=== PATIENT | female | born 1990 ===

== ENCOUNTER 2025-05-23 14:04 | Inpatient (IN) ==
[2025-05-23] MEDS: OXYTOCIN 30 UNITS/500ML NSS IV ONE (14:10)
[2025-05-23] MEDS ORDERED: BENZOCAINE 20% SPRY 85 APPLN/85 GM CAN EXT PRN (14:22)
[2025-05-23] MEDS ORDERED: HYDROCORTISONE ACETATE 25 MG SUPP PR PRN (14:22)
--- NOTE | 2025-05-23 14:28 | Delivery Summary ---
Vaginal Delivery Summary Date of Service May 23, 2025 Vaginal Delivery Summary DIAGNOSES: 1. Grande intrauterine at apparent term gestation. 2. Precipitous labor, arriving at L&D in second stage actively pushing 3. Non [place]-speaking patient 4. care with different physician group, thus no history available to me while providing delivery services PROCEDURE: Spontaneous vaginal delivery without perineal laceration. SURGEON: Cindy Lloyd MD. SET UP INSPECTOR: None. QUANTITATIVE BLOOD LOSS: 105 mL. COMPLICATIONS: None. PLACENTA: Spontaneous and intact with a 3-vessel cord. DISPOSITION: Stable to labor and delivery. DESCRIPTION: The patient arrived completely dilated, 10/100/+3 with visible amnion between labia, containing clear fluid and vernix. I was near the room and gowned/gloved while the patient's usual physician was notified of her arrival. While screaming, the patient pushed involuntarily to deliver the head en caul. The anterior and posterior shoulders delivered without difficulty, and during delivery of the body the amnion finally ruptured. There was no nuchal cord. The was vigorous and moving all extremities, and making respiratory efforts. The cord was doubly clamped by the MD and then cut. The placenta delivered spontaneously and was noted to be intact and with a 3VC. The cervix, vagina and perineum were examined and were found to be without defect requiring repair. The fundus was firm and lochia minimal immediately after delivery. [facility] Vaginal Delivery Charge Vaginal Delivery Codes: 51306 vaginal delivery
[2025-05-23 15:03] LABS: Hematocrit (blood only) 38.9 % (37.0-47.0); Hemoglobin 12.3 g/dl (12.0-16.0); Mean Corpuscular Hemoglobin 25.4 pg (25.0-34.0); Mean Corpuscular Volume 80.4 fL (80.0-100.0); Platelet Count 254 K/uL (130-400); RDW Standard Deviation 38.1 fL (36.4-46.3); Red Blood Count 4.84 M/uL (4.20-5.40); White Blood Count 12.34 K/ul (4.8-10.8)
[2025-05-23] MEDS: IBUPROFEN 600 MG TAB PO ONE (15:37)
[2025-05-23] MEDS: OXYTOCIN 30 UNITS/NSS 30 UNITS/500 ML BAG IV PRN (15:37)
[2025-05-23] MEDS: CARBOPROST TROMETHAMINE 250 MCG/ML AMPUL ONE (17:27)
[2025-05-23] MEDS: LACTATED RINGER'S 1,000 ML IV SCH (17:27)
[2025-05-23] MEDS: METHYLERGONOVINE MALEATE 0.2 MG/ML AMP ONE (17:28)
[2025-05-23] MEDS: ACETAMINOPHEN 325 MG TAB PO PRN (17:49)
[2025-05-23] MEDS: CARBOPROST TROMETHAMINE 250 MCG/ML AMPUL IM ONE ×2 (19:10→22:03)
[2025-05-23] MEDS: METHYLERGONOVINE MALEATE 0.2 MG/ML AMP IM STA (19:10)
[2025-05-23] MEDS: DIPHTHER/TETAN/PERTUS Vaccine (Tdap, Adol/Adult) 0.5mL IM ONE (19:21)
[2025-05-23] MEDS: Patient's HEIGHT &/or WEIGHT Needed STA (19:25)
[2025-05-23 19:27] LABS: Hematocrit (blood only) 38.1 % (37.0-47.0); Hemoglobin 12.7 g/dl (12.0-16.0); Mean Corpuscular Hemoglobin 26.2 pg (25.0-34.0); Mean Corpuscular Volume 78.7 fL (80.0-100.0); Platelet Count 312 K/uL (130-400); RDW Standard Deviation 37.6 fL (36.4-46.3); Red Blood Count 4.84 M/uL (4.20-5.40); White Blood Count 15.14 K/ul (4.8-10.8)
[2025-05-23] MEDS: IBUPROFEN 600 MG TAB PO PRN (22:04)
[2025-05-23] MEDS: DOCUSATE SODIUM 100 MG CAP PO SCH (22:04)
[2025-05-24 06:01] VITALS: RESP 16
[2025-05-24 07:31] LABS: Hematocrit (blood only) 28.7 % (37.0-47.0); Hemoglobin 9.5 g/dl (12.0-16.0); Mean Corpuscular Hemoglobin 25.8 pg (25.0-34.0); Mean Corpuscular Volume 78.0 fL (80.0-100.0); Platelet Count 281 K/uL (130-400); RDW Standard Deviation 38.2 fL (36.4-46.3); Red Blood Count 3.68 M/uL (4.20-5.40); White Blood Count 10.83 K/ul (4.8-10.8)
[2025-05-24] MEDS: IRON SUCROSE 200 MG in SODIUM CHLORIDE 0.9% 100 ML IV ONE (09:06)
--- NOTE | 2025-05-24 09:19 | Obstetrical Progress Note ---
Date of Service May 24, 2025 Assessment & Plan Admission and Anticipated Discharge Date Admission Date: May 23, 2025 Subjective Patient is seen and examined. She feels well, no complaints. Ambulating without dizziness Voiding without difficulty Tolerating regular diet with out N&V Bleeding is minimal No fever/ chills/ CP/ SOB/ N&V/ Leg pain Breast feeding without problems Vital Signs Temp Pulse Resp BP Pulse Ox O2 Del Method 05/24/25 06:00 36.9 C 72 16 108/69 99 Room Air 05/24/25 01:50 37 C 71 18 106/70 98 Room Air 05/23/25 21:45 36.5 C 77 18 112/75 99 Room Air Lab Results 05/23/25 05/23/25 05/24/25 Range/Units 14:40 18:47 06:32 WBC 12.34 H 15.14 H 10.83 H (4.8-10.8) K/ul RBC 4.84 4.84 3.68 L (4.20-5.40) M/uL Hgb 12.3 12.7 9.5 L D (12.0-16.0) g/dl Hct 38.9 38.1 28.7 L (37.0-47.0) % MCV 80.4 78.7 L 78.0 L (80.0-100.0) fL MCH 25.4 26.2 25.8 (25.0-34.0) pg MCHC 31.6 L 33.3 33.1 (32.0-36.0) g/dL RDW Std Deviation 38.1 37.6 38.2 (36.4-46.3) fL RDW Coeff of Kimmy 13.4 13.2 13.4 (11.5-14.5) % Plt Count 254 312 281 (130-400) K/uL MPV 10.5 10.7 10.7 (9.4-12.4) fL Treponema pallidum Ab Negative (Negative) Blood Type O Positive Antibody Screen NEGATIVE PE: General: Alert, orientedx3, NAD Abd: soft, NT, fundus firm, below Umbilicus Perineum intact, Lochia rubra minimal Ext; NT, no edema AP: 35 yo s/p precipitous , ppd# 1 VSS Afebrile doing well Anemic: ordered IV iron Continue routine care All questions were answered Desires d/c home D/C home afternoon Results & Data Vital Signs (Past 12 Hours) Vital Signs Temp Pulse Resp BP Pulse Ox O2 Del Method 05/24/25 06:00 36.9 C 72 16 108/69 99 Room Air 05/24/25 01:50 37 C 71 18 106/70 98 Room Air 05/23/25 21:45 36.5 C 77 18 112/75 99 Room Air
[2025-05-24] MEDS: PRENATAL VITAMIN 1 TAB PO SCH (09:27)
[2025-05-24 10:07] VITALS: TEMP 98.2
[2025-05-24 14:50] VITALS: BP 120/70; PULSE 69; O2SAT 98
--- NOTE | 2025-05-29 14:23 | Coding Query ---
CODING QUERY To promote full compliance with coding requirements relating to patient care, provider participation is requested in all cases of physical security engineer uncertainty. Please assist us with the question(s) below: Coding Question(s): Please document weeks of gestation Physician's Response(s): 3rd trimester Thank you Cindy Falk Principal Diagnosis: "that condition established after study, to be chiefly responsible for occasioning the admission of the patient to the hospital for care." Co-Existing Principal Diagnosis: "when two or more diagnoses equally meet the criteria for principal diagnosis as determined by the circumstances of admission, diagnostic work up, and/or therapy provided, and the Alphabetic Index, Tabular List, or another coding guideline does not provide sequencing direction, any one of the diagnoses may be sequenced first." "When the physician has documented what appears to be a current diagnosis in the body of the record, but has not included the diagnosis in the final diagnostic statement, the physician should be asked whether the diagnosis should be added." (Source [facility] 2 QTR90. p3-4) CLEMENTINE
== END 2025-05-24 16:50 | disposition home or self-care (01) | DRG 807 ==
LOC: OPB 14:05 → 4S1 14:07 → 4E2 21:50